=== PATIENT | female | born 1940 | race Caucasian/White ===

== ENCOUNTER 2017-06-11 17:16 | Emergency (ER) | payer OTHER ==
[~2017-06-11] VITALS: Ht 165.1 cm; Wt 89.4 kg
[~2017-06-11 17:16] MED LIST: ACET500 PO; AMIT50 PO; AMLO5 PO; AMOX500 PO; ATECHL PO; ATEN25 PO; AZIT250 PO; BISA10S PR; CALC.25 PO; CEPH250SUA PO; CITA20 PO; CLON.1 PO; CLOR7.5 PO; DOCU100 PO; DOXY100 PO; DRON5 PO; ENOX40I SC; FLUT.05NI; FURO40 PO; Ferrex 150 For1 EACH PO; GABA400 PO; HYDRA25 PO; INFUMORPH IT; LAVAP17G PO; LEVFLO250 PO; LEVFLO500 PO; LEVO750 PO; LIDO5TP TOP; LISI20 PO; LISI5 PO; MELA3 PO; MELATONIN10 MG PO; META800 PO; METO50ER PO; MORP30 PO; MORP30ER PO; Milk Of Ma800 MG/5 M PO; OMEP20ER PO; OMEPRAZOLE MAGN20 MG PO; ONDA4ODT SL; ONDA8 PO; OXYC30 PO; OXYC5 PO; POLY17UD PO; POTCHL10ER PO; POTCHL20ER PO; PRED10 PO; PRED20 PO; QUET25 PO; Roxicodone15 MG PO; SERT100 PO; Seroquel100 MG PO; THIA100 PO; TIZANIDINE HCL2 MG PO; TIZANIDINE HCL4 MG PO; TRAM50 PO; Zithromax250 MG PO; Zofran Odt4 MG PO; Zofran Odt4 MG SL; [UNRECOGNIZED DRUG - REMARK]
[2017-06-11] MEDS ORDERED: ASPERCREME76.5 GM TOP (17:38)
[2017-06-11] MEDS ORDERED: BUME2 PO (17:39)
[2017-06-11] MEDS ORDERED: BUME1 PO (17:39)
[2017-06-11] MEDS ORDERED: ALBU3IS INH (17:41)
[2017-06-11] MEDS ORDERED: Xalatan2.5 ML BOTHEYES (17:43)
[2017-06-11] MEDS ORDERED: AMLO5 PO (17:46)
[2017-06-11] MEDS ORDERED: PROC25S PR (17:47)
[2017-06-11] MEDS ORDERED: QUET300 PO (17:48)
[2017-06-11] MEDS ORDERED: TIOT18 INH (17:49)
[2017-06-11] MEDS ORDERED: VITAMIN B122500 MCG PO (17:50)
[2017-06-11] MEDS ORDERED: CHOL10002 PO (17:51)
[2018-04-08] MEDS ORDERED: ACET500 PO (15:49)
[2018-04-08] MEDS ORDERED: DOCU100 PO (15:50)
[2018-04-08] MEDS ORDERED: LIDO5TO TOP (15:50)
[2018-04-08] MEDS ORDERED: HYDHCL25 PO (15:51)
[2018-04-08] MEDS ORDERED: PAIN-RELIEF85 GM TOP (15:51)
[2018-04-08] MEDS ORDERED: Aranesp60 MCG/0.3 INJ (15:52)
[2018-04-08] MEDS ORDERED: ZOLP5 PO (15:53)
[2018-04-08] MEDS ORDERED: Midodrine HCl2.5 MG PO (15:53)
[2018-04-08] MEDS ORDERED: ALBU90OI INH (15:54)
== END 2017-06-11 19:02 | disposition home or self-care (01) ==
LOC: ER 17:16
DX: R03.0 Elevated blood-pressure reading, without diagnosis of hypertension (principal); Z88.6 Allergy status to analgesic agent; Z88.8 Allergy status to other drugs, medicaments and biological substances; Z79.899 Other long term (current) drug therapy; I10 Essential (primary) hypertension; Z79.2 Long term (current) use of antibiotics
CPT/HCPCS: 93005; 93010; 99283

== ENCOUNTER → 2017-07-10 | Outpatient (CLI) | payer OTHER ==
[~2017-07-10] MED LIST changes: +ALBU3IS INH; +ALBU90OI INH; +ASPERCREME76.5 GM TOP; +Aranesp60 MCG/0.3 INJ; +BUME1 PO; +BUME2 PO; +CHOL10002 PO; +HYDHCL25 PO; +LIDO5TO TOP; +Midodrine HCl2.5 MG PO; +PAIN-RELIEF85 GM TOP; +PROC25S PR; +QUET300 PO; +TIOT18 INH; +VITAMIN B122500 MCG PO; +Xalatan2.5 ML BOTHEYES; +ZOLP5 PO
[2017-07-10 16:37] LABS: Appearance, Urine Clear (Clear); Bilirubin, Urine Neg (Neg); Blood, Urine Neg (Neg); Color, Urine Yellow (P-Yellow); Glucose Qualitative, Urine Neg (Neg); Ketones, Urine Neg (Neg); Leukocyte Esterase, Urine 2+ (Neg); Nitrite, Urine Neg (Neg); Protein, Urine Neg (Neg); Specific Gravity, Urine 1.015 (1.003-1.022); Urobilinogen, Urine NORM (Normal)
[2017-07-10 16:52] LABS: Red Blood Cells, Urine 0-2 /hpf (0-2)
[2017-07-10 16:53] LABS: Bacteria Mod /hpf; Squamous Epithelial Cells Rare /hpf (Few)
== END | disposition home or self-care (01) ==
LOC: LAB SHORT 16:26 → LAB 16:26
PROVIDERS: Internal Medicine
DX: N39.0 Urinary tract infection, site not specified (principal)
CPT/HCPCS: 81001; 87077; 87086; 87186

== ENCOUNTER 2018-04-14 07:32 | Day surgery (SDC) | payer OTHER ==
[~2018-04-14] VITALS: Ht 165.1 cm; Wt 90.7 kg
== END 2018-04-14 10:20 | disposition home or self-care (01) ==
LOC: ORSCMMR 07:32 → ORD 08:00 → ORSCMMR 09:00
PROVIDERS: Internal Medicine Gastroenterology
PROC: 0DB68ZX Excision of Stomach, Via Natural or Artificial Opening Endoscopic, Diagnostic (ICD-10-PCS; principal; 2018-04-14 09:00)
PROC: 0D758ZZ Dilation of Esophagus, Via Natural or Artificial Opening Endoscopic (ICD-10-PCS; principal; 2018-04-14 09:00)
DX: R13.14 Dysphagia, pharyngoesophageal phase (principal); K31.7 Polyp of stomach and duodenum; E66.9 Obesity, unspecified; J44.9 Chronic obstructive pulmonary disease, unspecified; I10 Essential (primary) hypertension; K21.9 Gastro-esophageal reflux disease without esophagitis; K44.9 Diaphragmatic hernia without obstruction or gangrene; I48.91 Unspecified atrial fibrillation; K57.30 Diverticulosis of large intestine without perforation or abscess without bleeding; Z68.33 Body mass index [BMI] 33.0-33.9, adult; E66.01 Morbid (severe) obesity due to excess calories; Z87.891 Personal history of nicotine dependence; Z79.899 Other long term (current) drug therapy
CPT/HCPCS: 87081; 88305; 88341; 88342; J7120

== ENCOUNTER 2018-05-28 18:10 | Emergency (ER) | payer OTHER ==
[~2018-05-28] VITALS: Ht 165.1 cm; Wt 90.7 kg
[2018-05-28] MEDS ORDERED: Xalatan2.5 ML BOTHEYES (18:41)
[2018-05-28] MEDS ORDERED: VITAMIN D32000 UNIT PO (18:47)
[2018-05-28] MEDS ORDERED: TIOT18 INH (18:48)
[2018-05-28] MEDS ORDERED: VITAMIN B-121000 MCG PO (18:49)
[2018-05-28 18:55] LABS: BASOPHILS ABSOLUTE AUTO 0.06 K/mm3 (0.00-0.23); BASOPHILS PERCENT AUTO 1 % (0-2); EOSINOPHILS ABSOLUTE AUTO 0.16 K/mm3 (0.00-0.68); EOSINOPHILS PERCENT AUTO 2 % (0-6); Hematocrit 41.4 % (33.0-51.0); Hemoglobin 12.5 g/dL (11.5-16.0); IMMATURE GRAN ABSOLUTE AUTO 0.08 K/mm3 (0.00-0.10); IMMATURE GRAN PERCENT AUTO 1 % (0-1); LYMPHOCYTES ABSOLUTE AUTO 2.45 K/mm3 (0.84-5.20); LYMPHOCYTES PERCENT AUTO 24 % (21-46); MONOCYTES ABSOLUTE AUTO 0.62 K/mm3 (0.16-1.47); MONOCYTES PERCENT AUTO 6 % (4-13); Mean Corpuscular HGB 29.9 pg (26.0-34.0); Mean Corpuscular HGB Conc 30.2 g/dL (31.5-36.5); Mean Corpuscular Volume 99 fL (80-100); Mean Platelet Volume 10.7 fL (9.1-12.4); NEUTROPHILS PERCENT AUTO 67 % (41-73); Platelet Count 222 K/mm3 (150-400); RDW Coefficient Variation 12.2 % (11.7-14.2); RDW Standard Deviation 44.6 fL (35.1-46.3); Red Blood Cell Count 4.18 M/mm3 (3.80-5.20); White Blood Cell Count 10.27 K/mm3 (4.00-11.30)
[2018-05-28 19:22] LABS: Albumin, Blood 3.2 g/dL (3.4-5.0); Albumin/Globulin Ratio 0.8 (0.8-1.8); Bilirubin, Total 0.3 mg/dL (0.1-1.0); Bun/Creatinine Ratio 22.2 (12.0-20.0); Creatinine, Blood 1.67 mg/dL (0.40-1.00); Potassium, Blood 3.9 mmol/L (3.5-5.5); Total Protein, Blood 7.2 g/dL (6.4-8.2)
== END 2018-05-28 22:44 | disposition home or self-care (01) ==
LOC: ER 18:10
PROVIDERS: Emergency Medicine
DX: T17.920A Food in respiratory tract, part unspecified causing asphyxiation, initial encounter (principal); R09.02 Hypoxemia; I48.91 Unspecified atrial fibrillation; I10 Essential (primary) hypertension; F03.90 Unspecified dementia, unspecified severity, without behavioral disturbance, psychotic disturbance, mood disturbance, and anxiety; Z88.6 Allergy status to analgesic agent; Z88.8 Allergy status to other drugs, medicaments and biological substances; Z79.899 Other long term (current) drug therapy; E78.5 Hyperlipidemia, unspecified; Z87.891 Personal history of nicotine dependence
CPT/HCPCS: 36415; 71045; 71260; 80053; 83880; 84484; 85025; 93005; 93010; 94660; 96360; 99285-25; J7030; Q9967

== ENCOUNTER 2018-06-03 18:35 | Emergency (ER) | payer OTHER ==
[~2018-06-03] VITALS: Ht 165.1 cm; Wt 90.7 kg
[~2018-06-03 18:35] MED LIST changes: +VITAMIN B-121000 MCG PO; +VITAMIN D32000 UNIT PO
== END 2018-06-03 19:21 | disposition home or self-care (01) ==
LOC: ER 18:35
DX: T18.128A Food in esophagus causing other injury, initial encounter (principal); J44.9 Chronic obstructive pulmonary disease, unspecified; I10 Essential (primary) hypertension; X58.XXXA Exposure to other specified factors, initial encounter
CPT/HCPCS: 99284

== ENCOUNTER 2018-07-18 11:38 | Inpatient (IN) | payer OTHER ==
[~2018-07-18] VITALS: Ht 165.1 cm; Wt 90.2 kg
[2018-07-18 12:11] LABS: BASOPHILS ABSOLUTE AUTO 0.04 K/mm3 (0.00-0.23); BASOPHILS PERCENT AUTO 0 % (0-2); EOSINOPHILS ABSOLUTE AUTO 0.02 K/mm3 (0.00-0.68); EOSINOPHILS PERCENT AUTO 0 % (0-6); Hematocrit 39.8 % (33.0-51.0); Hemoglobin 12.2 g/dL (11.5-16.0); IMMATURE GRAN ABSOLUTE AUTO 0.06 K/mm3 (0.00-0.10); IMMATURE GRAN PERCENT AUTO 1 % (0-1); LYMPHOCYTES ABSOLUTE AUTO 1.52 K/mm3 (0.84-5.20); LYMPHOCYTES PERCENT AUTO 15 % (21-46); MONOCYTES PERCENT AUTO 8 % (4-13); Mean Corpuscular HGB 30.4 pg (26.0-34.0); Mean Corpuscular HGB Conc 30.7 g/dL (31.5-36.5); Mean Corpuscular Volume 99 fL (80-100); Mean Platelet Volume 11.3 fL (9.1-12.4); NEUTROPHILS ABSOLUTE AUTO 7.58 K/mm3 (1.96-9.15); NEUTROPHILS PERCENT AUTO 76 % (41-73); Platelet Count 201 K/mm3 (150-400); RDW Coefficient Variation 13.7 % (11.7-14.2); RDW Standard Deviation 50.4 fL (35.1-46.3); Red Blood Cell Count 4.01 M/mm3 (3.80-5.20); White Blood Cell Count 10.02 K/mm3 (4.00-11.30)
[2018-07-18 12:32] LABS: Albumin, Blood 3.2 g/dL (3.4-5.0); Albumin/Globulin Ratio 0.7 (0.8-1.8); Bilirubin, Total 0.6 mg/dL (0.1-1.0); Bun/Creatinine Ratio 16.1 (12.0-20.0); Creatinine, Blood 4.35 mg/dL (0.40-1.00); Globulin, Blood 4.3 g/dL (2.2-4.0); Potassium, Blood 3.7 mmol/L (3.5-5.5); Total Protein, Blood 7.5 g/dL (6.4-8.2)
[2018-07-18 15:52] LABS: Source, Urine Clean Catch
[2018-07-18] MEDS ORDERED: CLON.2 (15:54)
[2018-07-18] MEDS ORDERED: QUET300 (15:56)
[2018-07-18] MEDS ORDERED: PROC25S (15:58)
[2018-07-18] MEDS ORDERED: NYST100000 (15:58)
[2018-07-18 16:02] LABS: Appearance, Urine Cloudy (Clear); Blood, Urine 3+ (Neg); Color, Urine Yellow (P-Yellow); Glucose Qualitative, Urine Neg (Neg); Ketones, Urine 1+ (Neg); Leukocyte Esterase, Urine 3+ (Neg); Nitrite, Urine Neg (Neg); Protein, Urine 2+ (Neg); Urobilinogen, Urine NORM (Normal)
[2018-07-18 16:33] LABS: Bilirubin, Urine 2+ (Neg)
[2018-07-18 16:34] LABS: White Blood Cells, Urine 25-50 /hpf (0-5)
[2018-07-18 16:35] LABS: Bacteria Many /hpf; Hyaline Casts 0-2 /lpf (0-2); Mucus Light ({null, 0-Heavy}); Squamous Epithelial Cells Few /hpf (Few)
--- NOTE | 2018-07-19 04:45 | NUR ---
SHIFT SUMMARY SHIFT SUMMARY PT ER ADMIT THIS SHIFT FOR CEE. SHE HAS BEEN RECEIVING IVF NS AT 125 ML/HR. PT HAS DENIED PAIN. NO N/V. PT HAS BEEN A/OX4, AND ANSWERS MY QUESTIONS APPROPRIATELY. BP HAS BEEN STABLE. O2 IN PLACE 5L VIA HIGH FLOW NASAL CANNULA. VITALS HAVE BEEN STABLE. TELE IN PLACE WITH NSR. BED IN LOWEST POSITION, CALL LIGHT WITHIN REACH. WILL CONTINUE TO MONITOR AND REPORT TO ONCOMING RN.
[2018-07-19 05:40] LABS: Albumin, Blood 2.6 g/dL (3.4-5.0); Albumin/Globulin Ratio 0.7 (0.8-1.8); Bilirubin, Total 0.3 mg/dL (0.1-1.0); Bun/Creatinine Ratio 17.6 (12.0-20.0); Calcium, Blood 6.1 mg/dL (8.5-10.1); Creatinine, Blood 3.57 mg/dL (0.40-1.00); Globulin, Blood 3.8 g/dL (2.2-4.0); Magnesium, Blood 1.5 mg/dL (1.6-2.4); Potassium, Blood 3.8 mmol/L (3.5-5.5); Total Protein, Blood 6.4 g/dL (6.4-8.2)
--- NOTE | 2018-07-19 05:53 | NUR ---
NO URINE OUTPUT THIS SHIFT. PT STATES SHE DOES NOT HAVE TO GO. ATTENDS DRY. BLADDER SCAN DONE, WHICH SHOWED 223. MONITORING. WILL NOTUFY DAYSHIFT RN FOR CONTINUED FOLLOW UP.
[2018-07-19 06:21] LABS: BASOPHILS ABSOLUTE AUTO 0.02 K/mm3 (0.00-0.23); BASOPHILS PERCENT AUTO 0 % (0-2); EOSINOPHILS ABSOLUTE AUTO 0.01 K/mm3 (0.00-0.68); EOSINOPHILS PERCENT AUTO 0 % (0-6); Hematocrit 35.4 % (33.0-51.0); Hemoglobin 10.6 g/dL (11.5-16.0); IMMATURE GRAN ABSOLUTE AUTO 0.09 K/mm3 (0.00-0.10); IMMATURE GRAN PERCENT AUTO 1 % (0-1); LYMPHOCYTES ABSOLUTE AUTO 1.05 K/mm3 (0.84-5.20); LYMPHOCYTES PERCENT AUTO 12 % (21-46); MONOCYTES ABSOLUTE AUTO 0.62 K/mm3 (0.16-1.47); MONOCYTES PERCENT AUTO 7 % (4-13); Mean Corpuscular HGB 29.7 pg (26.0-34.0); Mean Corpuscular HGB Conc 29.9 g/dL (31.5-36.5); Mean Corpuscular Volume 99 fL (80-100); Mean Platelet Volume 11.3 fL (9.1-12.4); NEUTROPHILS ABSOLUTE AUTO 7.35 K/mm3 (1.96-9.15); NEUTROPHILS PERCENT AUTO 80 % (41-73); Platelet Count 169 K/mm3 (150-400); RDW Coefficient Variation 13.9 % (11.7-14.2); RDW Standard Deviation 50.6 fL (35.1-46.3); Red Blood Cell Count 3.57 M/mm3 (3.80-5.20); White Blood Cell Count 9.14 K/mm3 (4.00-11.30)
--- NOTE | 2018-07-19 06:27 | NUR ---
POOR PERFUSION UNABLE TO OBTAIN ACCURATE BIOX READINGS. ATTEMPTED TO WARM FINGERS WITH WARM BLANKETS, AND ALSO TRIED TO OBTAIN READING ON TOES WITH NO SUCCESS. CALLED RESPIRATORY THERAPY TO SEE IF THERE WERE ANY ALTERNATIVES TO THIS, OR ANY OTHER EQUIPMENT OR SUPPLIES WE COULD USE. ROSE RESPIRATORY THERAPIST STATES THERE WERE NO EXTRA EQUIPMENT AVALIBLE AT THE PRESENT TIME THAT COULD BE USED. FOREHEAD BIOX ETC. PT RESPIRATIONS ARE E/U AND SHE APPEARS WITHOUT DISTRESS. MONITORING.
--- NOTE | 2018-07-19 14:37 | NUR ---
spiritual care visit conducted. Patient was lying in bed and asleep but quickly awoke at a slight knock on patient's room door. Patient told me up front that she was incredibley tired and not to take it personal if she falls asleep in the middle of our conversation. That being said, I kept my visit quite short. Patient mentioned that she was cold so I went and got patient a blanket. I also explored patient's support system, spiritual affiliation and emotional state given her medical complications. I listened empathically, provided a calming presence, encouraged self care and offered to contact someone with the [employer] group. Patient denied wanting any help in contacting people from her gnosticism organization but responded well to all interventions and then quickly fell back to sleep.
--- NOTE | 2018-07-19 19:15 | NUR ---
PT. LYING QUIETLY, HAS BEEN SLEEPING MOST OF THE DAY. OPENS HER EYES AND ANSWERS WHEN SPOKEN TO. SAYS I'M JUST TIRED. PT. HAS NOT VOIDED ALL DAY OR GOTTEN OUT OF BED, HAS EATEN SMALL AMOUNTS OF HER DINNER, SHE MOSTLY WANTS TO SLEEP. BLADDER SCAN AT 1845 SHOWED 627 CC, DR. ROY NOTIFIED, ORDERED IN/OUT CATHETER.
[2018-07-19 23:45] LABS: PCO2 Arterial 57.7 mmHg (35-45); PO2 Arterial 63.9 mmHg (80-100); pH Blood Arterial 7.08 (7.35-7.45)
--- NOTE | 2018-07-19 23:50 | NUR ---
POWDERMAN was called for change in mentation. I called family listed on face sheet. son did not answer phone, daughter in law answered at her number. informed of patients condition and change in mentation. Grace daughter in law confermed DNR status and no intubation. Also stated medications are ok and comfort measures would be approprite per her.
--- NOTE | 2018-07-20 00:35 | NUR ---
AT 2305, PT 1 PER ASSIST TO BSC AND IN NORMAL MENTATION, VOIDS 600 ML URINE. RETURNED TO BED. MINUTES LATER, PT SETS OFF BED ALARM AND IS FOUND TO BE SLUMPED OVER SITTING AT THE SIDE OF THE BED. PT SAFELY RETURNED TO BED c THIS RN AND SALT MANAGER EMILY MANAZNARES. AT THIS TIME, PT NOTED TO HAVE DECREASED MENTATION AND LOW O2 SATS, GASPING FOR AIR. PT NONRESPONSIVE AND PALE. FINGER PROBE SHOWS O2 SATS OF 48% ON 5L VIA OXYMIZER, PT BUMPED UP TO 7L c NO IMPROVEMENT. PT CONT TO BE IN APPARANT RESP DISTRESS, AND UNABLE TO ANSWER Q'S. PT FLUTTERS EYES TO NAME ONLY AND WEAK STRENGHT CASE RESOURCE MANAGER. RESP THERAPIST PLACES NWB @ 15 L ON PT AND DRAWS STAT ABG. PT @ 85% c NWB ON AND MENTATION SHOWS NO IMPROVEMENT. LOCOMOTIVE DRIVER CALLED AT THIS TIME. ABG SHOWS RESP ACIDOSIS: pH 7.08, pCO2 57.7, pO2 63.9, BASE EXCESS -12., HC03 14.4. PT WOULD REQUIRE BIPAP TO CORRECT. JASPREET CARMICHAEL, BULLDOGGER, PLACES CALL TO SON (POA) AND [id number] IN REGARDS TO THEIR WISHES OF PT CARE FROM THIS POINT. PER FAMILY, THEY REQUESTED COMFORT MEASURES ONLY AND REFUSED BIPAP. PLACED CALLED TO DR SANDY, HOSPITALIST, TO REPORT LOCOMOTIVE DRIVER EVENTS AND FAMILY WISHES. FAMILY DENIES BIPAP AND WANTS COMFORT MEASURES ONLY. RECIEVED ORDER FOR COMFORT MEASURES ONLY, ATIVAN 1MG IV Q8H PRN (ANXIETY), AND MORPHINE 2-4 MG Q4H PRN (AIR HUNGER). PT CONTINUES TO BE c DECREASED MENTATION AND IN RESP DISTRESS. O2 SATS CURRENTLY AT 91% c NWB @ 15 L. ADMINISTERING ATIVAN AND MORPHINE PER COMFORT MEASURES.
--- NOTE | 2018-07-20 01:06 | NUR ---
PT HAS MONEY IN HOSPITAL GOWN POCKET. DUE TO PT DECREASED IN MENTATION, THIS RN FELT UNSAFE c MONEY BEING LEFT IN POCKET. CALLED SECURITY TO PUT MONEY IN HOSPITAL SAFE. A TOTAL OF $480 ON PT TAKEN TO HOSPITAL SAFE. TICKET IN FRONT OF PT CHART.
--- NOTE | 2018-07-20 06:11 | NUR ---
PT FAMILY CALLS BACK AND REPORTS A CHANGE OF MIND AND THEY WANT PT TO BE RECIEVING FULL MEASURES INCLUDING BIPAP. HOWEVER, PT POLST SAYS "DNR, COMFORT MEASURES ONLY", WHICH IS SIGNED BY PATIENT IN 2017. COPY IN FRONT OF CHART. THIS LEGAL DOCUMENT STANDS OVER FAMILY WISHES. DISCUSSED WITH VISION TEACHER, GHASSAN AYALA, AND CLINICAL COORDINATOR, JOZEF CREWS. BOTH REPORT POLST IS WHAT HOSPITAL GOES BY. THEREFORE, PT IS COMFORT MEASURES PER PATIENT WISHES MADE APPARENT IN POLST. JOZEF CREWS, RN, SAYS THIS NEEDS TO BE A CONVERSATION BETWEEN DR AND FAMILY. PASS ON TO DAYSHIFT RN THAT THIS NEEDS TO BE A CONVERSATION BETWEEN FAMILY AND DOCTOR.
--- NOTE | 2018-07-20 07:42 | NUR ---
SHIFT SUMMARY: PT HAD A MAJOR DECLINE IN MENTATION AND RESP DRIVE THRU THE NIGHT. COPER HAND INIATED D/T ALT MENTATION AND LOW O2 SATS. PT WAS A&O AND RECIEVING 5L VIA OXYMIZER OF 02 @ 91%, UNTIL ABOUT 2300. AT THIS TIME, PT SLUMPED OVER IN BED AND WAS UNRESPONSIVE. ACCORDING TO FINGER PROBE O2 SATS, SATS WERE IN THE 40s. RESP THERAPY PLACED PT ON NWB @ 15 L, AND EAR PROBE 02 SATS MONITOR . PT O2 SATS 85%, HOWEVER, STILL FLUTTERING EYES ONLY AND NOT RESPONDING TO NAME OR COMMANDS. WELDING MACHINE OPERATOR RESISTANCE, VINCENT JEANNE, REPORTS SINUS TACH @ 140s. COPER HAND INITIATED AT THIS TIME. STAT ABG SHOWS SEVERE RESP ACIDOSIS, REQUIRING BIPAP AND TRANSFER TO DIFF FLOOR. AT THIS TIME, HOUSING LIFE INSURANCE SALESPERSON JASPREET CARMICHAEL, CONTACTED FAMILY IN REGARDS TO WISHES. FAMILY REPORTS COMFORT MEASURES ONLY. AROUND 0400, FAMILY CALLS AND REPORTS WANTING PT TO RECIEVE FULL MEASURES BESIDES INTUBATION, INCLUDING BIPAP. DISCUSSED THIS FINDING WITH PROBATE JUDGE, GHASSAN AYALA, AND CLINICAL COORDINATOR, JOZEF CREWS. PT POLST FROM 2017 SHOWS DNR, COMFORT MEASURES ONLY. PROBATE JUDGE AND CLINICAL COORDINATOR STATES THIS LEGAL DOCUMENT WILL RESPECT PT WISHES, RATHER THAN FAMILY WISHES. IN-HOUSE PHYSICIAN IS TO CALL FAMILY AND DISCUSS THIS LEGAL DOCUMENT AND ITS MEANING WITH THE FAMILY. WILL PASS THIS ON TO DAYSHIFT RN. PT HAS BEEN TREATED WITH IV ATIVAN AND IV MORPHINE FOR AIR HUNGER AND ANXIETY. NWB @ 15L REMAINS IN PLACE. Q2H TURNS AND PERSONAL CARE COMPLETE PER CC ORDERS. NO OTHER CHANGES TO REPORT.
--- NOTE | 2018-07-20 10:30 | NUR ---
PT NOT RESPONDING TO POSITION CHANGES OR VERBAL OR TACTILE STIMULATION.
--- NOTE | 2018-07-20 10:47 | NUR ---
RN AND WAREHOUSE GENERAL LABORER GAVE PT BED BATH AND REPOSITIONED PT
--- NOTE | 2018-07-20 11:23 | NUR ---
TIME OF [address] ROY AND EVAN MEJIA; AYAD SQUIRES RN AND KATINA CRAWFORD RN NOTIFIED.
--- NOTE | 2018-07-20 13:05 | NUR ---
HOME TRANSPORTED PATIENT OUT @[id number]
== END 2018-07-20 11:23 | DRG 871 ==
LOC: ER 11:38 → MEDS 15:17
PROVIDERS: Emergency Medicine; ADMIT Internal Medicine
DX: A41.9 Sepsis, unspecified organism (principal); R65.21 Severe sepsis with septic shock; N17.9 Acute kidney failure, unspecified; I12.0 Hypertensive chronic kidney disease with stage 5 chronic kidney disease or end stage renal disease; N18.5 Chronic kidney disease, stage 5; N39.0 Urinary tract infection, site not specified; Z23 Encounter for immunization; Z51.5 Encounter for palliative care; E86.0 Dehydration; E86.9 Volume depletion, unspecified; F03.90 Unspecified dementia, unspecified severity, without behavioral disturbance, psychotic disturbance, mood disturbance, and anxiety; Z87.891 Personal history of nicotine dependence; J44.9 Chronic obstructive pulmonary disease, unspecified; M81.0 Age-related osteoporosis without current pathological fracture; Z66 Do not resuscitate; Z99.3 Dependence on wheelchair; Z90.5 Acquired absence of kidney; R11.2 Nausea with vomiting, unspecified; R40.2411 Glasgow coma scale score 13-15, in the field [EMT or ambulance]
CPT/HCPCS: 36415; 36600; 71046; 76770; 80053; 81001; 82803; 83690; 83735; 83880; 85025; 87077; 87086; 87186; 90686; 93005; 93010; 96360; 96361; 99285-25; J0696; J1644; J1940; J2060; J2270; J7030; P9612